=== PATIENT | female | born 1965 | race Caucasian/White ===

== ENCOUNTER 2021-09-19 09:58 | Day surgery (SDC) | payer BC, OTHER ==
[~2021-09-19 09:58] MED LIST: Metoclopramide 10 MG/2 ML SDV IV PRN
[2021-09-19] MEDS: Sodium Chloride 0.9% 1,000 ML IV SCH (10:29)
[2021-09-19] MEDS ORDERED: Propofol 1,000 MG/100 ML SDV ONE (12:20)
== END 2021-09-19 13:24 | disposition home or self-care (01) ==
LOC: LB.SDS 09:58
PROVIDERS: ATTEND Surgery
DX: D12.2 Benign neoplasm of ascending colon (principal); I10 Essential (primary) hypertension; E78.5 Hyperlipidemia, unspecified; F32.A Depression, unspecified; Z87.891 Personal history of nicotine dependence; Z79.899 Other long term (current) drug therapy
CPT/HCPCS: 88305; J2704; J7030